=== PATIENT | male | born 1950 | race Caucasian/White ===

== ENCOUNTER 2019-01-13 12:59 | Emergency (ER) | payer OTHER ==
[~2019-01-13] VITALS: Ht 193 cm; Wt 97.5 kg
[~2019-01-13 12:59] MED LIST: ASPIR 8181 MG PO; TEGRETOL XR400 MG PO
== END 2019-01-13 17:00 | disposition home or self-care (01) ==
LOC: ED 12:59 → EDBD 13:01 → ED 13:01
DX: R56.9 Unspecified convulsions (principal); F17.200 Nicotine dependence, unspecified, uncomplicated; V89.2XXA Person injured in unspecified motor-vehicle accident, traffic, initial encounter
CPT/HCPCS: 80053; 80156; 85025; 99284

== ENCOUNTER 2020-10-23 11:09 | Emergency (ER) | payer OTHER ==
[~2020-10-23] VITALS: Ht 193 cm; Wt 97.5 kg
[2020-10-23] MEDS ORDERED: HYDROCODON-ACE1 EA10 PO (16:13)
[2020-10-23] MEDS ORDERED: LEVOFLOXACIN750 MG PO (16:13)
--- NOTE | 2020-10-24 14:07 | EKG ---
[facility] [address] [facility] [place], [place] [address] Signed Sinus rhythm with 1st degree AV block Septal infarct , age undetermined Abnormal ECG No previous ECGs available Confirmed by MADHURI ARRINGTON DO ([id number]) on 10/24/2020 2:06:55 PM Electronically Signed By: MADHURI ARRINGTON DO 10/24/20 1407 PATIENT NAME: KIMMIRA Electrocardiogram DATE OF : 46 PHYSICIAN: MADHURI ARRINGTON DO REPORT #: [id number] REPORT IS CONFIDENTIAL AND NOT TO BE RELEASED WITHOUT AUTHORIZATION
== END 2020-10-23 16:30 | disposition home or self-care (01) ==
LOC: ED 11:09
DX: J18.9 Pneumonia, unspecified organism (principal); Z20.822 Contact with and (suspected) exposure to COVID-19; I10 Essential (primary) hypertension; G40.909 Epilepsy, unspecified, not intractable, without status epilepticus; Z87.891 Personal history of nicotine dependence; Z79.899 Other long term (current) drug therapy; Z79.82 Long term (current) use of aspirin
CPT/HCPCS: 71045; 80053; 82553; 84484; 85025; 93005; 93010; 96365; 96367; 99284-25; C9803; J0456; J0696; J7060; U0003

== ENCOUNTER 2021-08-08 11:16 | Emergency (ER) | payer MEDICARE, OTHER ==
[~2021-08-08] VITALS: Ht 193 cm; Wt 90.7 kg
[~2021-08-08 11:16] MED LIST changes: +HYDROCODON-ACE1 EA10 PO; +LEVOFLOXACIN750 MG PO; +TEGRETOL XR200 MG PO
[2021-08-08] MEDS ORDERED: TEGRETOL XR200 MG PO (12:05)
== END 2021-08-08 12:20 | disposition home or self-care (01) ==
LOC: ED 11:16
DX: Z76.0 Encounter for issue of repeat prescription (principal); G40.909 Epilepsy, unspecified, not intractable, without status epilepticus; I10 Essential (primary) hypertension; Z87.891 Personal history of nicotine dependence; Z79.899 Other long term (current) drug therapy
CPT/HCPCS: 99281

== ENCOUNTER 2022-10-02 12:07 | Emergency (ER) | payer OTHER, MEDICARE ==
[~2022-10-02] VITALS: Ht 193 cm; Wt 83.9 kg
--- OUTSIDE RECORDS SUMMARY | 2022-10-02 12:10 | XMS ---
PreManage Notification: MIRA KIM Security Training Developer Events No recent Security Events currently on file [facility] There are no care providers on record at this time. Ml has no Care Guidelines for this patient. Virgie VISIT COUNT (12 MO.) 1 [facility] TOTAL 1 NOTE: Visits indicate total known visits. ED/UCC VISIT TRACKING (12 MO.) 10/02/2022 12:07 [facility] [place] TYPE: Emergency COMPLAINT: - MEDICATION REQUEST INPATIENT VISIT TRACKING (12 MO.) No inpatient visits to display in this time frame [email or web address]
[2022-10-02] MEDS ORDERED: CLOBAZAM10 MG PO (15:43)
[2022-10-02 15:51] VITALS: BP 138/77
== END 2022-10-02 15:53 | disposition home or self-care (01) ==
LOC: ED 12:07
DX: Z76.0 Encounter for issue of repeat prescription (principal); I10 Essential (primary) hypertension; Z87.891 Personal history of nicotine dependence; Z79.899 Other long term (current) drug therapy
CPT/HCPCS: 99281

== ENCOUNTER 2023-07-20 12:05 | Emergency (ER) | payer OTHER ==
[~2023-07-20] VITALS: Ht 193 cm; Wt 77.0 kg
[~2023-07-20 12:05] MED LIST changes: +CLOBAZAM10 MG PO
--- OUTSIDE RECORDS SUMMARY | 2023-07-20 12:11 | XMS ---
PreManage Notification: MIRA KIM Security Operations Supervisor 2Nd Shift Events No recent Security Events currently on file CRITERIA MET - [facility] CARE PROVIDERS [facility] Internal Medicine Current PHONE: [phone] Ml has no Care Guidelines for this patient. EDiomedes VISIT COUNT (12 MO.) 2 [facility] TOTAL 2 NOTE: Visits indicate total known visits. ED/UCC VISIT TRACKING (12 MO.) 07/20/2023 12:08 [facility] TYPE: Emergency COMPLAINT: - FEET SWOLLEN 10/02/2022 12:07 [facility] TYPE: Emergency COMPLAINT: - MEDICATION REQUEST DIAGNOSES: - Encounter for issue of repeat prescription - Essential (primary) hypertension - Other snf (current) drug therapy - Personal history of nicotine dependence INPATIENT VISIT TRACKING (12 MO.) 06/07/2023 05:37 [facility] TYPE: Neuro Surgery DIAGNOSES: 01967. Localization-related (focal) (partial) idiopathic epilepsy and epileptic syndromes with seizures of localized onset, intractable, without status epilepticus 56836. Localization-related (focal) (partial) symptomatic epilepsy and epileptic syndromes with complex partial seizures, intractable, without status epilepticus 51620. Localization-related (focal) (partial) symptomatic epilepsy and epileptic syndromes with complex partial seizures, intractable, without status epilepticus [email or web address]
[2023-07-20] MEDS ORDERED: ATIVAN1 MG PO (12:30)
[2023-07-20] MEDS ORDERED: COZAAR50 MG PO (12:31)
[2023-07-20] MEDS ORDERED: TOPAMAX50 MG PO (12:31)
[2023-07-20] MEDS ORDERED: FLOMAX0.4 MG PO (12:32)
[2023-07-20 13:00] LABS: BASOPHILS 0.7 % (0-2); EOSINOPHILS 2.7 % (0-6); HEMATOCRIT 33.6 % (35.0-50.0); HEMOGLOBIN 11.4 g/dL (12.0-18.0); LYMPHOCYTES 23.1 % (24-44); MCH 32.3 (27-36); MCHC 33.9 g/dl (30-36); MCV 95.2 fl (81-99); MONOCYTES 8.8 % (0-12); NEUTROPHILS 64.7 % (39-80); PLATELET COUNT 296 K/uL (140-440); RBC 3.53 M/ul (4.3-5.7); RDW 14.1 (10.5-15.0)
[2023-07-20 13:22] LABS: ALBUMIN 2.9 g/dL (3.4-5.0); ALBUMIN/GLOBULIN RATIO 0.81 (1.1-2.4); ANION GAP 8.7 (7-21); BILIRUBIN, TOTAL 0.2 ng/dL (0.2-1.0); BUN/CREATININE RATIO 16.85 (6.0-28.6); CALCIUM 8.2 mg/dL (8.5-10.1); CREATININE, SERUM 0.89 mg/dL (0.70-1.30); POTASSIUM 3.7 mmol/L (3.5-5.1); PROTEIN, TOTAL 6.5 g/dL (6.4-8.2)
[2023-07-20 13:55] LABS: BILIRUBIN, URINE NEGATIVE (negative); BLOOD/HGB, URINE NEGATIVE (Negative); KETONE, URINE NEGATIVE (Negative); LEUK ESTERASE, URINE NEGATIVE (negative); NITRITE, URINE NEGATIVE (negative)
[2023-07-20] MEDS ORDERED: FUTURO RESTORI1 EACH MISC (14:13)
[2023-07-20 14:18] LABS: AMPHETAMINES, URINE NEGATIVE (NEGATIVE); BARBITURATES, URINE NEGATIVE (NEGATIVE); BENZODIAZEPINE, URINE POSITIVE (NEGATIVE); BUPRENORPHINE, URINE NEGATIVE (NEGATIVE); CANNABINOID, URINE POSITIVE (NEGATIVE); COCAINE, URINE NEGATIVE (NEGATIVE); ECSTASY, URINE NEGATIVE (NEGATIVE); FENTANYL, URINE NEGATIVE (NEGATIVE); METHADONE, URINE NEGATIVE (NEGATIVE); OPIATES, URINE NEGATIVE (NEGATIVE); OXYCODONE, URINE NEGATIVE (NEGATIVE); PHENCYCLIDINE, URINE NEGATIVE (NEGATIVE)
[2023-07-20 14:40] VITALS: BP 123/79
--- NOTE | 2023-07-21 15:02 | EKG ---
[facility] [address] [facility] [place], [place] [address] Signed Sinus bradycardia with 1st degree AV block Septal infarct (cited on or before 23-OCT-2020) Abnormal ECG When compared with ECG of 23-OCT-2020 11:30, No significant change was found Confirmed by MARYLIN RYAN MD ([id number]) on 07/21/2023 3:02:11 PM Electronically Signed By: MARYLIN RYAN 07/21/23 1502 PATIENT NAME: MIRA KIM Electrocardiogram DATE OF : 46 PHYSICIAN: MARYLIN RYAN REPORT #: [id number] REPORT IS CONFIDENTIAL AND NOT TO BE RELEASED WITHOUT AUTHORIZATION
== END 2023-07-20 14:40 | disposition home or self-care (01) ==
LOC: ED 12:05
PROVIDERS: Internal Medicine
DX: I87.2 Venous insufficiency (chronic) (peripheral) (principal); I10 Essential (primary) hypertension; G40.909 Epilepsy, unspecified, not intractable, without status epilepticus; Z87.891 Personal history of nicotine dependence; Z79.899 Other long term (current) drug therapy
CPT/HCPCS: 36415; 71045; 80053; 80307; 81003; 83880; 85025; 93005; 93010; 93970; 99285-25

== ENCOUNTER 2023-08-24 12:27 | Emergency (ER) | payer OTHER ==
[~2023-08-24] VITALS: Ht 193 cm; Wt 80.4 kg
[~2023-08-24 12:27] MED LIST changes: +ATIVAN1 MG PO; +COZAAR50 MG PO; +FLOMAX0.4 MG PO; +FUTURO RESTORI1 EACH MISC; +TOPAMAX50 MG PO
--- OUTSIDE RECORDS SUMMARY | 2023-08-24 12:30 | XMS ---
PreManage Notification: MIRA KIM Security Manager Learning Events No recent Security Events currently on file CRITERIA MET - [facility] CARE PROVIDERS [facility] WOOD Internal Medicine Current PHONE: [phone] Ml has no Care Guidelines for this patient. EDiomedes VISIT COUNT (12 MO.) 3 [facility] TOTAL 3 NOTE: Visits indicate total known visits. ED/UCC VISIT TRACKING (12 MO.) 08/24/2023 12:28 [facility] [place] TYPE: Emergency COMPLAINT: - SEIZURE 07/20/2023 12:08 [facility] [place] TYPE: Emergency COMPLAINT: - FEET SWOLLEN DIAGNOSES: - Epilepsy, unspecified, not intractable, without status epilepticus - Essential (primary) hypertension - Localized edema - Other termite exterminator (current) drug therapy - Personal history of nicotine dependence - Venous insufficiency (chronic) (peripheral) 10/02/2022 12:07 [facility] [place] TYPE: Emergency COMPLAINT: - MEDICATION REQUEST DIAGNOSES: - Encounter for issue of repeat prescription - Essential (primary) hypertension - Other senior living (current) drug therapy - Personal history of nicotine dependence INPATIENT VISIT TRACKING (12 MO.) 06/07/2023 05:37 [facility] TYPE: Neuro Surgery DIAGNOSES: 53362. Localization-related (focal) (partial) idiopathic epilepsy and epileptic syndromes with seizures of localized onset, intractable, without status epilepticus 87234. Localization-related (focal) (partial) symptomatic epilepsy and epileptic syndromes with complex partial seizures, intractable, without status epilepticus 57500. Localization-related (focal) (partial) symptomatic epilepsy and epileptic syndromes with complex partial seizures, intractable, without status epilepticus [email or web address]
[2023-08-24 12:53] LABS: BASOPHILS 1.1 % (0-2); EOSINOPHILS 3.6 % (0-6); HEMATOCRIT 39.6 % (35.0-50.0); HEMOGLOBIN 13.1 g/dL (12.0-18.0); LYMPHOCYTES 28.2 % (24-44); MCH 31.6 (27-36); MCV 95.7 fl (81-99); MONOCYTES 7.5 % (0-12); NEUTROPHILS 59.6 % (39-80); PLATELET COUNT 318 K/uL (140-440); RBC 4.14 M/ul (4.3-5.7); RDW 13.8 (10.5-15.0)
[2023-08-24 13:14] LABS: ALBUMIN 3.3 g/dL (3.4-5.0); ALBUMIN/GLOBULIN RATIO 0.89 (1.1-2.4); ALCOHOL, MEDICAL <3 ng/dL (<3); ALKALINE PHOSPHATASE 109 U/L (46-116); ALT (SGPT) 29 U/L (14-59); ANION GAP 11.7 (7-21); AST (SGOT) 17 U/L (15-37); BILIRUBIN, TOTAL 0.4 ng/dL (0.2-1.0); BUN/CREATININE RATIO 13.04 (6.0-28.6); CALCIUM 8.5 mg/dL (8.5-10.1); CARBON DIOXIDE 29 mmol/L (21-32); CHLORIDE 106 mmol/L (98-107); CREATININE, SERUM 0.92 mg/dL (0.70-1.30); GLOMERULAR FILTRATION RATE,EST 87 mL/min (>60); POTASSIUM 3.7 mmol/L (3.5-5.1); UREA NITROGEN 12 mg/dL (7-18)
[2023-08-24 15:29] LABS: BILIRUBIN, URINE NEGATIVE (negative); BLOOD/HGB, URINE NEGATIVE (Negative); KETONE, URINE NEGATIVE (Negative); LEUK ESTERASE, URINE NEGATIVE (negative); NITRITE, URINE NEGATIVE (negative); PH, URINE 7.5 (5-7)
[2023-08-24] MEDS ORDERED: carBAMazepine 200 MG TAB PO ONE (15:45)
[2023-08-24 15:46] LABS: AMPHETAMINES, URINE NEGATIVE (NEGATIVE); BARBITURATES, URINE NEGATIVE (NEGATIVE); BENZODIAZEPINE, URINE POSITIVE (NEGATIVE); BUPRENORPHINE, URINE NEGATIVE (NEGATIVE); CANNABINOID, URINE POSITIVE (NEGATIVE); COCAINE, URINE NEGATIVE (NEGATIVE); ECSTASY, URINE NEGATIVE (NEGATIVE); FENTANYL, URINE NEGATIVE (NEGATIVE); METHADONE, URINE NEGATIVE (NEGATIVE); OPIATES, URINE NEGATIVE (NEGATIVE); OXYCODONE, URINE NEGATIVE (NEGATIVE); PHENCYCLIDINE, URINE NEGATIVE (NEGATIVE)
[2023-08-24 15:50] VITALS: BP 154/82
--- NOTE | 2023-08-24 17:22 | EKG ---
[facility] [address] [facility] [place] [address] Signed Sinus rhythm with 1st degree AV block Septal infarct (cited on or before 23-OCT-2020) Abnormal ECG When compared with ECG of 20-JUL-2023 12:31, No significant change was found Confirmed by Magui Lucas ([id number]) on 08/24/2023 5:21:51 PM Electronically Signed By: MAGUI LUCAS MD 08/24/23 1722 PATIENT NAME: MIRA KIM Electrocardiogram DATE OF : 46 PHYSICIAN: MAGUI LUCAS MD REPORT #: [id number] REPORT IS CONFIDENTIAL AND NOT TO BE RELEASED WITHOUT AUTHORIZATION
== END 2023-08-24 15:57 | disposition home or self-care (01) ==
LOC: ED 12:27
PROVIDERS: Emergency Medicine
DX: R53.1 Weakness (principal); I10 Essential (primary) hypertension; G40.909 Epilepsy, unspecified, not intractable, without status epilepticus; Z87.891 Personal history of nicotine dependence; Z79.899 Other long term (current) drug therapy
CPT/HCPCS: 36415; 70450; 80053; 80307; 81003; 84484; 85025; 93005; 93010; 99284-25; G0480

== ENCOUNTER 2023-08-26 11:29 | Inpatient (IN) | payer OTHER ==
[2023-08-26] VITALS (7 sets, daily range): BP systolic 147–207; BP diastolic 85–123
[~2023-08-26] VITALS: Ht 193 cm; Wt 77.5 kg
[2023-08-26 11:52] LABS: EOSINOPHILS 3.9 % (0-6); HEMATOCRIT 41.7 % (35.0-50.0); HEMOGLOBIN 13.8 g/dL (12.0-18.0); LYMPHOCYTES 32.3 % (24-44); MCH 31.4 (27-36); MCV 95.2 fl (81-99); MONOCYTES 4.6 % (0-12); NEUTROPHILS 58.2 % (39-80); PLATELET COUNT 314 K/uL (140-440); RBC 4.38 M/ul (4.3-5.7); RDW 13.7 (10.5-15.0)
[2023-08-26 12:13] LABS: ALBUMIN 3.5 g/dL (3.4-5.0); ALBUMIN/GLOBULIN RATIO 0.95 (1.1-2.4); ANION GAP 10.7 (7-21); BILIRUBIN, TOTAL 0.5 ng/dL (0.2-1.0); BUN/CREATININE RATIO 10.1 (6.0-28.6); CALCIUM 8.6 mg/dL (8.5-10.1); CREATININE, SERUM 0.99 mg/dL (0.70-1.30); MAGNESIUM 2.1 mg/dL (1.8-2.4); POTASSIUM 3.7 mmol/L (3.5-5.1); PROTEIN, TOTAL 7.2 g/dL (6.4-8.2)
[2023-08-26 12:15] LABS: CARBAMAZEPINE (TEGRETOL) 10.9 ug/mL (4.0-12.0)
[2023-08-26 12:23] LABS: BILIRUBIN, URINE NEGATIVE (negative); BLOOD/HGB, URINE NEGATIVE (Negative); KETONE, URINE NEGATIVE (Negative); LEUK ESTERASE, URINE NEGATIVE (negative); NITRITE, URINE NEGATIVE (negative)
--- OUTSIDE RECORDS SUMMARY | 2023-08-26 12:25 | XMS ---
PreManage Notification: MIRA KIM Security Coverer Events No recent Security Events currently on file CRITERIA MET - [facility] - 2 Visits in 30 Days CARE PROVIDERS SHIRLEY WOOD Internal Medicine Current PHONE: [phone] Ml has no Care Guidelines for this patient. EDiomedes VISIT COUNT (12 MO.) 4 [facility] TOTAL 4 NOTE: Visits indicate total known visits. ED/UCC VISIT TRACKING (12 MO.) 08/26/2023 11:29 [facility] [place] TYPE: Emergency COMPLAINT: - STROKE SYMPTOMS 08/24/2023 12:28 [facility] TYPE: Emergency COMPLAINT: - SEIZURE DIAGNOSES: - Epilepsy, unspecified, not intractable, without status epilepticus - Essential (primary) hypertension - Other continuous churn buttermaker (current) drug therapy - Personal history of nicotine dependence - Weakness 07/20/2023 12:08 [facility] [place] TYPE: Emergency COMPLAINT: - FEET SWOLLEN DIAGNOSES: - Epilepsy, unspecified, not intractable, without status epilepticus - Essential (primary) hypertension - Localized edema - Other long-term (current) drug therapy - Personal history of nicotine dependence - Venous insufficiency (chronic) (peripheral) 10/02/2022 12:07 [facility] TYPE: Emergency COMPLAINT: - MEDICATION REQUEST DIAGNOSES: - Encounter for issue of repeat prescription - Essential (primary) hypertension - Other long-term (current) drug therapy - Personal history of nicotine dependence INPATIENT VISIT TRACKING (12 MO.) 06/07/2023 05:37 [facility] TYPE: Neuro Surgery DIAGNOSES: 01104. Localization-related (focal) (partial) idiopathic epilepsy and epileptic syndromes with seizures of localized onset, intractable, without status epilepticus 13904. Localization-related (focal) (partial) symptomatic epilepsy and epileptic syndromes with complex partial seizures, intractable, without status epilepticus 63616. Localization-related (focal) (partial) symptomatic epilepsy and epileptic syndromes with complex partial seizures, intractable, without status epilepticus [email or web address]
[2023-08-26 12:28] LABS: EPITHELIAL CELLS, URINE SQUAMOUS 1+ /lpf (0-1+); RED BLOOD CELLS, URINE 0-1 /hpf (0-5); WHITE BLOOD CELLS, URINE 0-1 /HPF (0-5)
[2023-08-26 12:29] LABS: BACTERIA, URINE NONE SEEN /hpf (negative); CASTS, URINE NONE SEEN \\lpf; COLLECTION TYPE, URINE CLEAN CATCH; CRYSTALS, URINE NONE SEEN (0-1+); REFLEX CULTURE, URINE No (No)
[2023-08-26] MEDS ORDERED: ACETAMINOPHEN 325 MG TAB PO PRN (13:45)
[2023-08-26] MEDS ORDERED: PROCHLORPERAZINE EDISYLATE 10 MG/2 ML VIAL IV PRN (13:45)
[2023-08-26] MEDS ORDERED: ondansetron HCL 4 MG/2 ML VIAL IV PRN (13:45)
--- NOTE | 2023-08-26 14:55 | NUR ---
PT ARRIVES TO ROOM ON STRETCHER ACCOMPANIED BY KASIA GONZALES. PT ABLE TO SCOOT SELF FROM STRETCHER TO BED. REPORT RECEIVED FROM KASIA GONZALES. 2 RN SKIN ASSESSMENT COMPLETE WITH KASIA GONZALES. RENESS NOTED TO PTs RIGHT POSTERIOR SHOULDER. PT REPORTING TOILETING NEEDS. SBA WITH FWW FROM BED TO RESTROOM. PT NOTED TO HAVE UNSTEADY GAIT. SBA FROM RESTROOM BACK TO BED. VOID NOTED. PT PLACED IN HOSPITAL GOWN. PTs CLOTHES PLACED IN GREEN PT BELONGING BAG. 1549 ASSESSMENT COMPLETE. PT DENIES PAIN AT THIS TIME. LUNG SOUNDS CLEAR. BOWEL TONES ACTIVE. PT DENIES ABD TENDERNESS WITH PALPATION. PT REPORTS CHRONIC NUMBNESS IN BILATERAL FEET. WEAKNESS NOTED IN PTs BLE. PT STATES "I HAVE TROUBLE WITH MY BALANCE." PT USES FWW AT BASELINE. HEART TONES IRREGULAR. PT A&O TO ALL WITH EXPECTION TO TIME. PT REPORTS HAVING UPPER AND LOWER DENTURES AT HOME, NOT WITH PT AT THIS TIME. NIH SCORE OF 2 NOTED. PT REPORTING "VISION IS SLOW TO GET THERE, THE TELEPHONE IS WIGGLING." SCDs PLACED. BEDSIDE SWALLOW BY THIS RN COMPLETE, SEE LESLIE SWALLOW. PT BED ALARM PLACED. CALL LIGHT IN REACH. SEIZURE PADS IN PLACE. PT EDUCATED PRIMARY CARE PROVIDER LIGHT USE. PT DENIES ANY OTHER NEEDS AT THIS TIME.
[2023-08-26] MEDS ORDERED: TEGRETOL200 MG PO ×2 (17:11→17:12)
[2023-08-26] MEDS ORDERED: CLOBAZAM10 MG PO (17:14)
[2023-08-26] MEDS ORDERED: SENNA-PLUS TAB1 EACH PO (17:15)
[2023-08-26] MEDS ORDERED: FISH OIL 1,0001 EACH PO (17:16)
[2023-08-26] MEDS ORDERED: VITAMIN D325 MCG PO (17:16)
--- NOTE | 2023-08-26 17:18 | NUR ---
medications reconciled with . Patient will be taking his own clobazam 20mg dose (two 10mg tablets) BID. Someone will bring them in
[2023-08-26] MEDS ORDERED: TAMSULOSIN HCL 0.4 MG CAP PO SCH (17:30)
[2023-08-26] MEDS ORDERED: LORazepam 1 MG TAB PO PRN (17:30)
--- NOTE | 2023-08-26 18:03 | NUR ---
IN WITH SHARMILA MACHADO., RN AND ANILA NEGRON. PT REPORTING "FEELING LIKE NECK IS TIGHT." PT APPEARS TENSE IN NECK. B/P NOTED TO BE 207/123 WITH HR AT 79. PER DR. WOO "GIVE 2000 DOSE OF TEGRETOL NOW AND ALSO PTs OWN MED CLOBAZAM NOW." MEDICATIONS ADMINISTERED, SEE JUN. PT TAKES PO MEDICATIONS ONE AT A TIME WITH WATER WITH NO ISSUES. ONE TIME ORDER OF LABETALOL ORDERED. 1832 PTs VITALS TAKEN AND BP NOTED TO BE 189/106. DR. WOO NOTIFIED. PER DR. WOO "HOLD THE LABETALOL." PT ALSO REPORTING "FEELING A LITTLE BETTER NOW." PT NOTED TO APPEAR MORE COMFORTABLE AND LESS TENSE. PT REPORTING TOILETING NEEDS. PT HANDED URINAL AND ENCOURAGED TO USE URINAL AT THIS TIME. PT AGREEABLE. VOID NOTED. PT SITTING UP IN BED. SEIZURE PADS IN PLACE. BED ALARM ON. CALL LIGHT IN REACH. SCDs IN PLACE. PT DENIES ANY OTHER NEEDS.
--- NOTE | 2023-08-26 18:06 | NUR ---
PT CALLED HE STATE HE WAS HAVING "ANOTHER ATTACK", NECK WAS RIGID AND TIGHT HE STATES, C/O TIGHTNESS IN JAW. BP ELEVATED 181/111, DENIED CHEST PAIN/SOB. C/O VISION CHANGES-DOUBLE VISION. FEELS LIKE HANDS ARE STIFF/LIMP AND THEN BACK TO NORMAL. APPEARS TO BE HAVING DIFFICULTY FINDING WORDS AT TIMES, BUT IMPROVING OVER CONVERSATION. MD WAS NOTIFIED, ARRIVED AT BEDSIDE, SCHEDULED 2000 MEDS GIVEN EARLY PER MD. PT STATES HE SEEMS LIKE FEELING BETTER JUST ABOUT 3-5 MINUTES AFTER MEDS GIVEN. REPEAT BP 207/123, HR 79, O2 100 ON RA. PT CMS INTACT, ABLE TO MOVE ALL EXTREMITIES WITHOUT ANY DEFICITS. MD PRESENT AT BEDSIDE DURING ASSESSMENT, WILL REIVEW ORDERS AND INPUT NEW ORDERS ACCORDINGLY.
[2023-08-26] MEDS ORDERED: LABETALOL HCL 100 MG/20 ML MDV IV ONE (18:30)
--- NOTE | 2023-08-26 18:39 | NUR ---
PER MD, INPUT ORDER FOR X1 DOSE LABETOLOL, PT REPEAT BP 189/106, WOULD LIKE RECHECK BP JUST PRIOR TO CHANGE OF SHIFT AGAIN, WILL HOLD THE LABETOLOL AT THIS TIME PER MD SINCE WE DID JUST GIVE THE X2 MEDS EARLY THIS EVENING. CALL LIGHT WITHIN REACH AT THIS TIME, SEIZURE PADS ON BED. ALL PT CARE NEEDS MET, WILL CONTINUE TO MONITOR
--- NOTE | 2023-08-26 19:05 | NUR ---
shift report received from dayshift vera roberson at bedside, pt awake and talking with staff. no distress noted, bed alarm on for safety and call light in reach. tele#[address], nsr-hr wnl. pt denies needs or concerns.
[2023-08-26] MEDS ORDERED: carBAMazepine 200 MG TAB PO SCH (20:00)
[2023-08-26] MEDS ORDERED: SENNOSIDES/DOCUSATE 1 EA TAB PO SCH (20:00)
[2023-08-26] MEDS ORDERED: TOPIRAMATE 25 MG TAB PO SCH (20:00)
[2023-08-26] MEDS ORDERED: cloBAZam 10 MG TABLET PO SCH (20:00)
--- NOTE | 2023-08-26 20:17 | NUR ---
PT A/O, WATCHING TV. VS, I/O COMPLETED AT THIS TIME.
--- NOTE | 2023-08-26 20:28 | NUR ---
ASSESSMENT COMPLETE, SCHEDULED MEDS GIVEN-SEE EMAR. VSS, pt REMAINS ON RA. RR EVEN AND UNLABORED. SCD'S IN PLACE. EQUAL STRENGTH NOTED TO BUE AND BLE. CMS INTACT EQUALLY, pt DENIES NUMBNESS AND TINGLING. DENIES PAIN AND NAUSEA. A/O TO SELF, KNEW HE WAS IN HOSPITAL BUT DIDN'T KNOW THE NAME. GUESSED IT WAS AUGUST, BUT REORIENTED IT IS LATE JULY. pt PLEASANT AND COMPLAINT WITH CARES. BED ALARM ON FOR SAFETY AND CALL LIGHT IN REACH. PUPILS ROUND, EQUAL, AND REACTIVE TO LIGHT. TELE #[address], NSR PER MONITOR. pt REPORTS HAVING "BRAIN FOG" SINCE HIS BRAIN SURGERY IN JUN OF THIS YEAR. IV SITE WNL, FLUSHES EASILY. pt DENIES ADDITIONAL NEEDS, WILL MONITOR FOR CAHNGES.
--- NOTE | 2023-08-26 22:30 | NUR ---
ROUNDED ON pt, pt RESTING IN BED WITH EYES CLOSED. ON RA, RR EVEN AND UNLABORED, NO DISTRESS NOTED. BED ALARM ON AND CALL LIGHT IN REACH.
--- NOTE | 2023-08-26 23:47 | NUR ---
CALL LIGHT ANSWERED, pt WANTING HELP WITH REPOSITONING SEIZURE PADS ONE OF THEM WAS LOOSE. NO ADDITIONAL NEEDS, pt STATES, "I FEEL PRETTY GOOD, LIKE I NORMALLY DO". NO CHANGE TO NEURO ASSESSMENT. CALL LIGHT IN REACH, BED ALARM ON.
[2023-08-27] VITALS (7 sets, daily range): BP systolic 125–187; BP diastolic 70–131
--- NOTE | 2023-08-27 02:04 | NUR ---
PATIENT RESTING IN BED WITH EYES CLOSED. I WOKE PATIENT UP TO GET VITAL SIGNS. PATIENT NEEDED TO USE THE BATHROOM. PATIENT PROVIDED WITH URINAL. PATIENT VOIDED. PATIENT STATES NO FURTHER NEEDS AT THIS TIME. CALL LIGHT IN REACH.
--- NOTE | 2023-08-27 02:07 | NUR ---
rounded on pt, laborer livestock recently in room for vs. vss, tele#[address], call light in reach. bed alarm on for safety.
--- NOTE | 2023-08-27 05:07 | NUR ---
ROUNDED ON pt, pt RESTING QUIETLY IN BED LAYING ON LEFT SIDE. ON RA, RR EVEN AND UNLABORED WITH NO DISTRESS NOTED. CALL LIGHT IN REACH. BED ALARM REMAINS ON FOR SAFETY.
[2023-08-27 06:20] LABS: BASOPHILS 1.2 % (0-2); EOSINOPHILS 4.1 % (0-6); HEMATOCRIT 39.2 % (35.0-50.0); HEMOGLOBIN 13.2 g/dL (12.0-18.0); LYMPHOCYTES 29.2 % (24-44); MCHC 33.6 g/dl (30-36); MCV 95.1 fl (81-99); NEUTROPHILS 57.5 % (39-80); PLATELET COUNT 284 K/uL (140-440); RBC 4.13 M/ul (4.3-5.7); RDW 13.7 (10.5-15.0)
--- NOTE | 2023-08-27 06:38 | NUR ---
PATIENT STATED HE NEEDS TO USE THE BATHROOM. PATIENT USES URINAL. PATIENT VOIDED. PATIENT HAS NO FURTHER NEEDS AT THIS TIME. CALL LIGHT IN REACH.
[2023-08-27 06:40] LABS: ALBUMIN 3.2 g/dL (3.4-5.0); ALBUMIN/GLOBULIN RATIO 0.94 (1.1-2.4); ANION GAP 8.8 (7-21); BILIRUBIN, TOTAL 0.5 ng/dL (0.2-1.0); BUN/CREATININE RATIO 10.84 (6.0-28.6); CALCIUM 8.3 mg/dL (8.5-10.1); CREATININE, SERUM 0.83 mg/dL (0.70-1.30); MAGNESIUM 1.9 mg/dL (1.8-2.4); PHOSPHORUS, INORGANIC 3.3 mg/dL (2.5-4.9); POTASSIUM 3.8 mmol/L (3.5-5.1); PROTEIN, TOTAL 6.6 g/dL (6.4-8.2)
[2023-08-27 07:11] LABS: CHOLESTEROL/HDL RATIO 2.9
--- NOTE | 2023-08-27 07:53 | NUR ---
PT RESTING IN BED WATCHING TV AT TIME OF SHIFT REPORT. HE REQUEST MORNING MEDS RADHA. CONCERNED HE GETS THEM TO PREVENT "PROBLEMS" MEDS ADMINISTERED. FRESH H20 TO BEDSIDE DENIES OTHER NEEDS. PT STATES HE HOPES TO GO HOME TODAY. DENIES ANY SYMPTOMS OR CHANGE IN CONDITION SINCE ADMISSION. SEIZURE PADS IN PLACE CALL LIGHT IN REACH.
[2023-08-27] MEDS ORDERED: carBAMazepine 200 MG TAB PO SCH (08:00)
--- NOTE | 2023-08-27 09:17 | NUR ---
PT TOLERATES BREAKFAST THEN RETURNS TO RESTING EYES CLOSED. CALL LIGHT IN REACH BED ALARM IS SET
--- NOTE | 2023-08-27 09:27 | NUR ---
PATCHER ENTERED PT ROOM AND PT WAS DONE EATING BREAKFAST. PATCHER RECORDED INTAKE ON PT BOARD IN ROOM. PT STATES NO COMPLAINTS OTHER THAN THAT HE DID NOT GET VERY MUCH SLEEP LAST NIGHT. PATCHER TOLD PT THAT WE WOULD FIND A TIME THAT HE WOULD BE ABLE TO TAKE A NAP. PT STATES NO FURTHER COMPLAINTS AT THIS TIME. CALL LIGHT IS Viroblock REACH
--- NOTE | 2023-08-27 10:07 | NUR ---
PT UP WORKING WITH P/T
--- NOTE | 2023-08-27 11:32 | NUR ---
PT HAS BEEN UP IN THE CHAIR SINCE WORKING WITH P/T EARLIER. DENIES DISCOMFORTS OR NEEDS OF. REMINDED TO USE CALL LIGHT FOR ANY ASSISTANCE
[2023-08-27] MEDS ORDERED: PHARMACY RENAL DOSE ADJUSTMENT 1 DOSE MISC PO SCH (12:00)
--- NOTE | 2023-08-27 13:52 | NUR ---
PT CONTINUES UP IN THE CHAIR DR WOO IN TO SEE HIM. PT STATES HE IS STAYING UNTIL TOMORROW FOR FURTHER TESTING DENIES QUESTIONS OR CONCERNS
--- NOTE | 2023-08-27 14:15 | NUR ---
NEURO CHECKS REMAIN UNREMARKABLE. PT DENIES ANY CHANGES SINCE ADMISSION. REPORTS HE FORGOT TO TELL THE DOCTOR HE NORMALLY WEARS GLASSES. ANTICIPATES MRI TOMORROW
--- NOTE | 2023-08-27 19:15 | NUR ---
REPORT RECEIVED FROM KASIA WILDER. pt UP IN CHAIR. CALL LIGHT PROVIDED. pt DEMONSTRATES CALL LIGHT USE. NO REQUESTS AT THIS TIME.
--- NOTE | 2023-08-27 19:34 | NUR ---
PATIENT CALLED TO USE THE RESTROOM, PATIENT IS NOW IN BED AND RESTING. PATIENT HAS CALL LIGHT.
--- NOTE | 2023-08-27 20:04 | NUR ---
PATIENT CALLED TO USE RESTROOM, PATIENT IS NOW SITTING UP IN BED. PATIENT CALLED TO SEE IF HE COULD GET MEDICINE EARLY. I TOLD PATIENT HIS NURSE WOULD BE RIGHT IN. PATIENT HAS CALL LIGHT AND PHONE
--- NOTE | 2023-08-27 20:22 | NUR ---
pt ANXIOUS. RESTING IN BED, SITTING FORWARD, ROCKING BODY BACK AND FORTH. CALLS AND ON PHONE WITH pt. PRN ANXIETY MEDICATION ADMINISTERED. SCHEDULED MEDICATIONS ADMINISTERED. VS COMPLETE. ASSESSMENT COMPLETE. NEURO CHECK COMPLETE. BLURRINESS NOTED IN RIGHT EYE, pt STATES CHRONIC ISSUE SINCE JUNE. ORIENTED TO ALL EXCEPT EXACT DATE. THERAPEUTIC COMMUNICATION PROVIDED. PERSONAL SUPPLIES IN REACH.
--- NOTE | 2023-08-27 21:13 | NUR ---
pt CALLING OUT, SBA WITH FWW TO RESTROOM FOR VOID AND BACK TO BED. pt RESTING IN BED, MRI FORM COMPLETE. ON PHONE ASSISTING WITH QUESTIONNAIRE. BP REASSESSED. PHONE CALL TO MD, NOTIFIED OF ANXIETY AND HTN. MD TO RESTART HOME BP TOMORROW, ONE TIME BP MEDICATION TO BE ADMINISTERED NOW. MD TO PLACE ORDERS.
[2023-08-27] MEDS ORDERED: LOSARTAN POTASSIUM 50 MG TAB PO SCH (21:15)
[2023-08-27] MEDS ORDERED: LABETALOL HCL 100 MG/20 ML MDV IV ONE (21:15)
--- NOTE | 2023-08-27 22:36 | NUR ---
CHECKED ON pt. RESTING IN BED WITH HEAD COVERED WITH BLANKET. BREATHING UNLABORED. HR 81 ON TELE 1. BED ALARM ON.
--- NOTE | 2023-08-28 00:20 | NUR ---
BED ALARM SOUNDING. SBA WITH FWW TO RESTROOM FOR VOID. pt ANXIOUS, STATES "I MIGHT HAVE A SEIZURE OR SOMETHING, I DON'T KNOW". pt WITH SOME CONFUSION, REORIENTED TO PLACE, PLAN OF CARE. PRN MEDICATION ADMINISTERED. pt BACK IN BED, ALERT AND ORIENTED, STATES "THAT WAS A WEIRD FEELING. I HAVE BEEN SLEEPING GOOD". VS COMPLETE. NEURO CHECK COMPLETE. CALL LIGHT IN REACH. BED ALARM ON.
[2023-08-28 00:24] VITALS: BP 151/100
--- NOTE | 2023-08-28 03:00 | NUR ---
IN ROOM TO FIX HEART MONITOR. pt SLEEPING, AWAKENS TO VOICE. LEAD REPLACED. BED ALARM ON. CALL LIGHT IN REACH.
--- NOTE | 2023-08-28 05:05 | NUR ---
pt RESTING IN BED ON RIGHT SIDE. EYES CLOSED. HR 67. NO DISTRESS NOTED. BED ALARM ON.
[2023-08-28 06:04] VITALS: BP 113/61
[2023-08-28 06:28] VITALS: BP 113/61
--- NOTE | 2023-08-28 06:58 | NUR ---
CHECKED ON pt. RESTING IN BED WITH EYES CLOSED. BREATHING UNLABORED. NO DISTRESS NOTED. BED ALARM ON.
--- NOTE | 2023-08-28 07:20 | NUR ---
PT RESTING EYES CLOSED AT TIME OF SHIFT REPORT, LEFT UNDISTURBED. CALL LIGHT WATER AND NEEDED ITEMS AT BEDSIDE
--- NOTE | 2023-08-28 07:58 | NUR ---
PATIENT WAS SLEEPING WHEN DOING THIS HOURLY ROUND. BOARD HAS BEEN UPDATED AND CALL LIGHT HAS BEEN PLACED WITHIN PATIENT REACH.
--- NOTE | 2023-08-28 08:30 | NUR ---
PT UP TO THE TOILET SBA THEN TO RECLINER FOR MORING MEAL. REVIEWED PLAN FOR MRI THIS SHIFT AND POSSIBLY DC. PT AGREES HE IS READY. NO NEURO CHANGE SINCE ADMISSION, PT AGREES HE FEELS WELL AND AT BASELINE.
--- NOTE | 2023-08-28 08:53 | NUR ---
PT NOTIFIED MRI IS SCHEDULED FOR 1300 TODAY. HE IS UP IN THE CHAIR TALKING ON THE PHONE WATCHING TV NEEDED ITEMS IN REACH. PT AGREES TO USE CALL LIGHT FOR UP TO THE TOILET
[2023-08-28 09:27] VITALS: BP 146/85
--- NOTE | 2023-08-28 10:05 | NUR ---
PT DOWN TO MRI VIA W/C
--- NOTE | 2023-08-28 11:07 | NUR ---
PT BACK FROM MRI RETURNS TO SITTING IN THE RECLINER. FRESH H20 TO CHAIRSIDE
--- NOTE | 2023-08-28 11:10 | NUR ---
PATIENT ON PHONE, WILL REATTEMPT ASSESSMENT.
[2023-08-28 13:14] VITALS: BP 114/75
--- NOTE | 2023-08-28 14:16 | NUR ---
VISITED DURING SPIRITUAL CARE ROUNDS. PT EXPRESSED SADNESS, WORRY ABOUT . I LISTENED EMPATHETICALLY, RELAYED INFORMATION FROM CARE TEAM, PROVIDED REASSURANCE, EXPLORED HOPE. PT EXPRESSED GRATITUDE. I PROVIDED PRAYER.
[2023-08-28 14:22] LABS: TOPIRAMATE <1.5 ug/mL (5.0-20.0)
[2023-08-28 14:27] VITALS: BP 114/75
--- NOTE | 2023-08-28 14:46 | NUR ---
PT REMAINS UP IN THE CHAIR DR WOO IN TO SEE HIM. MRI RESULTS DISCUSSED AND PLAN GOING FORWARD. ALL QUESTIONS ANSWERED.
--- NOTE | 2023-08-28 16:01 | NUR ---
PT AMBULATES AN ENTIRE LAP IN THE AC SBA WITH FWW. RETURNS TO SITTING IN CHAIR WAITING FOR DC
--- NOTE | 2023-08-28 17:40 | NUR ---
PT UP IN THE CHAIR COMPLETES EVENING MEAL STATES HE IS ANXIOUS FOR DC.
--- NOTE | 2023-08-28 22:44 | EKG ---
[facility] [address] [facility] [place] [address] Signed Sinus rhythm with 1st degree AV block Septal infarct (cited on or before 23-OCT-2020) Abnormal ECG When compared with ECG of 24-AUG-2023 13:06, No significant change was found Confirmed by Kristen Woo MD () on 08/28/2023 10:44:08 PM Electronically Signed By: KRISTEN WOO MD 08/28/23 2244 PATIENT NAME: MIRA KIM Electrocardiogram DATE OF : 46 PHYSICIAN: KRISTEN WOO MD REPORT #: [id number] REPORT IS CONFIDENTIAL AND NOT TO BE RELEASED WITHOUT AUTHORIZATION
== END 2023-08-28 18:55 | disposition home health service (06) | DRG 64 ==
LOC: ED 11:29 → MS 11:30
PROVIDERS: Emergency Medicine; ADMIT Family Medicine; ATTEND Family Medicine
DX: I63.9 Cerebral infarction, unspecified (principal); I62.00 Nontraumatic subdural hemorrhage, unspecified; R53.1 Weakness; R73.9 Hyperglycemia, unspecified; G40.909 Epilepsy, unspecified, not intractable, without status epilepticus; I10 Essential (primary) hypertension; I44.0 Atrioventricular block, first degree; R47.9 Unspecified speech disturbances; R29.700 NIHSS score 0; Z72.0 Tobacco use
CPT/HCPCS: 36415; 70450; 70496; 70498; 70553; 71045; 80053; 80061; 80156; 80201; 81001; 83036; 83735; 84100; 84484; 85025; 93005; 93010; 97163; A9270-GY; A9579; G0378; Q9967

== ENCOUNTER 2023-09-17 12:45 | Emergency (ER) | payer OTHER, MEDICARE ==
[~2023-09-17 12:45] MED LIST changes: +FISH OIL 1,0001 EACH PO; +SENNA-PLUS TAB1 EACH PO; +TEGRETOL200 MG PO; +VITAMIN D325 MCG PO
--- OUTSIDE RECORDS SUMMARY | 2023-09-17 12:49 | XMS ---
PreManage Notification: MIRA KIM Security Urgent Care Nurse Practitioner Events No recent Security Events currently on file CRITERIA MET - [facility] - 2 Visits in 30 Days CARE PROVIDERS SHIRLEY WOOD Internal Medicine Current PHONE: Unknown Ml has no Care Guidelines for this patient. E.DCrys VISIT COUNT (12 MO.) 6 [facility] TOTAL 6 NOTE: Visits indicate total known visits. ED/UCC VISIT TRACKING (12 MO.) 09/17/2023 12:46 [facility] TYPE: Emergency COMPLAINT: - SOB, CHEST PAIN, CONFUSION 09/03/2023 14:30 [facility] TYPE: Emergency COMPLAINT: - SEIZURE DIAGNOSES: - Epilepsy, unspecified, not intractable, without status epilepticus - Essential (primary) hypertension - Other half-way (current) drug therapy - Other malaise - Other symptoms and signs involving emotional state - Personal history of nicotine dependence - Personal history of transient ischemic attack (TIA), and cerebral infarction without residual deficits 08/26/2023 11:29 [facility] TYPE: Emergency COMPLAINT: - STROKE SYMPTOMS 08/24/2023 12:28 [facility] TYPE: Emergency COMPLAINT: - SEIZURE DIAGNOSES: - Epilepsy, unspecified, not intractable, without status epilepticus - Essential (primary) hypertension - Other buttermaker (current) drug therapy - Personal history of nicotine dependence - Weakness 07/20/2023 12:08 [facility] TYPE: Emergency COMPLAINT: - FEET SWOLLEN DIAGNOSES: - Epilepsy, unspecified, not intractable, without status epilepticus - Essential (primary) hypertension - Localized edema - Other half-way (current) drug therapy - Personal history of nicotine dependence - Venous insufficiency (chronic) (peripheral) 10/02/2022 12:07 [facility] TYPE: Emergency COMPLAINT: - MEDICATION REQUEST DIAGNOSES: - Encounter for issue of repeat prescription - Essential (primary) hypertension - Other buttermaker (current) drug therapy - Personal history of nicotine dependence INPATIENT VISIT TRACKING (12 MO.) 08/27/2023 17:[address] [facility] TYPE: Medical Surgical COMPLAINT: - WEAKNESS, POSSIBLE TIA DIAGNOSES: - Atrioventricular block, first degree - Atrioventricular block, first degree - Cerebral infarction, unspecified - Cerebral infarction, unspecified - Epilepsy, unspecified, not intractable, without status epilepticus - Epilepsy, unspecified, not intractable, without status epilepticus - Essential (primary) hypertension - Essential (primary) hypertension - Hyperglycemia, unspecified - Hyperglycemia, unspecified - NIHSS score 0 - NIHSS score 0 - Nontraumatic subdural hemorrhage, unspecified - Nontraumatic subdural hemorrhage, unspecified - Tobacco use - Tobacco use - Unspecified speech disturbances - Unspecified speech disturbances - Weakness 06/07/2023 05:37 [facility] TYPE: Neuro Surgery DIAGNOSES: 78316. Localization-related (focal) (partial) idiopathic epilepsy and epileptic syndromes with seizures of localized onset, intractable, without status epilepticus 99998. Localization-related (focal) (partial) symptomatic epilepsy and epileptic syndromes with complex partial seizures, intractable, without status epilepticus 25764. Localization-related (focal) (partial) symptomatic epilepsy and epileptic syndromes with complex partial seizures, intractable, without status epilepticus [email or web address]
[2023-09-17 13:20] LABS: EOSINOPHILS 2.7 % (0-6); HEMATOCRIT 37.2 % (35.0-50.0); HEMOGLOBIN 12.6 g/dL (12.0-18.0); MCHC 33.9 g/dl (30-36); MCV 94.5 fl (81-99); MONOCYTES 11.6 % (0-12); NEUTROPHILS 58.7 % (39-80); PLATELET COUNT 277 K/uL (140-440); RBC 3.93 M/ul (4.3-5.7); RDW 13.9 (10.5-15.0)
[2023-09-17 13:38] LABS: ALBUMIN 3.1 g/dL (3.4-5.0); ALBUMIN/GLOBULIN RATIO 0.89 (1.1-2.4); ANION GAP 10.9 (7-21); BILIRUBIN, TOTAL 0.3 ng/dL (0.2-1.0); BUN/CREATININE RATIO 17.2 (6.0-28.6); CALCIUM 8.4 mg/dL (8.5-10.1); CREATININE, SERUM 0.93 mg/dL (0.70-1.30); POTASSIUM 3.9 mmol/L (3.5-5.1); PROTEIN, TOTAL 6.6 g/dL (6.4-8.2)
[2023-09-17 13:48] LABS: BILIRUBIN, URINE NEGATIVE (negative); BLOOD/HGB, URINE NEGATIVE (Negative); KETONE, URINE NEGATIVE (Negative); LEUK ESTERASE, URINE NEGATIVE (negative); NITRITE, URINE NEGATIVE (negative)
[2023-09-17 14:59] VITALS: BP 155/86
== END 2023-09-17 15:00 | disposition home or self-care (01) ==
LOC: ED 12:45
PROVIDERS: Emergency Medicine
DX: G40.909 Epilepsy, unspecified, not intractable, without status epilepticus (principal); I10 Essential (primary) hypertension; Z87.891 Personal history of nicotine dependence; Z79.899 Other long term (current) drug therapy
CPT/HCPCS: 36415; 70450; 80053; 81003; 84484; 85025; 99284-25

== ENCOUNTER 2023-11-01 16:41 | Emergency (ER) | payer OTHER, MEDICARE ==
[~2023-11-01] VITALS: Ht 193 cm; Wt 81.8 kg
--- OUTSIDE RECORDS SUMMARY | 2023-11-01 16:42 | XMS ---
PreManage Notification: MIRA KIM Security Vocational Training Instructor Events No recent Security Events currently on file CRITERIA MET - 6 ED Visits in 6 Months - PDMP CARE PROVIDERS SHIRLEY WOOD Internal Medicine Current PHONE: Unknown Ml has no Care Guidelines for this patient. E.D. VISIT COUNT (12 MO.) [facility] Desirea Rae (Shiva Shannon) TOTAL 7 NOTE: Visits indicate total known visits. ED/UCC VISIT TRACKING (12 MO.) 11/01/2023 16:41 [facility] [place] TYPE: Emergency COMPLAINT: - HEADACHE 09/29/2023 11:05 [facility] (Shiva Shannon[facility] TYPE: Emergency DIAGNOSES: - Dysarthria and anarthria - Other specified disorders of muscle - Other speech disturbances - Locked Jaw /Dizzy - Spasms 09/17/2023 12:46 [facility] [place] TYPE: Emergency COMPLAINT: - SOB, CHEST PAIN, CONFUSION DIAGNOSES: - Dizziness and giddiness - Epilepsy, unspecified, not intractable, without status epilepticus - Essential (primary) hypertension - Other ferry terminal agent (current) drug therapy - Personal history of nicotine dependence 09/03/2023 14:30 [facility] [place] [facility] [place] TYPE: Emergency COMPLAINT: - SEIZURE DIAGNOSES: - Epilepsy, unspecified, not intractable, without status epilepticus - Essential (primary) hypertension - Other retirement (current) drug therapy - Other malaise - Other symptoms and signs involving emotional state - Personal history of nicotine dependence - Personal history of transient ischemic attack (TIA), and cerebral infarction without residual deficits 08/26/2023 11:29 [facility] [place] TYPE: Emergency COMPLAINT: - STROKE SYMPTOMS 08/24/2023 12:[address] [facility] [place] [facility] [place] TYPE: Emergency COMPLAINT: - SEIZURE DIAGNOSES: - Epilepsy, unspecified, not intractable, without status epilepticus - Essential (primary) hypertension - Other ferry terminal agent (current) drug therapy - Personal history of nicotine dependence - Weakness 07/20/2023 12:08 [facility] [place] TYPE: Emergency COMPLAINT: - FEET SWOLLEN DIAGNOSES: - Epilepsy, unspecified, not intractable, without status epilepticus - Essential (primary) hypertension - Localized edema - Other retirement (current) drug therapy - Personal history of nicotine dependence - Venous insufficiency (chronic) (peripheral) INPATIENT VISIT TRACKING (12 MO.) 08/27/2023 17:25 [facility] [place] TYPE: Medical Surgical COMPLAINT: - WEAKNESS, [...] Unspecified speech disturbances - Weakness 06/07/2023 05:37 [facility] TYPE: Neuro Surgery DIAGNOSES: 88104. Localization-related (focal) (partial) idiopathic epilepsy and epileptic syndromes with seizures of localized onset, intractable, without status epilepticus 80295. 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
[2023-11-01] MEDS ORDERED: JARDIANCE10 MG PO (17:06)
[2023-11-01] MEDS ORDERED: LORazepam 1 MG TAB PO ONE (17:15)
[2023-11-01 17:39] LABS: BASOPHILS 0.6 % (0-2); EOSINOPHILS 0.7 % (0-6); HEMATOCRIT 40.3 % (35.0-50.0); HEMOGLOBIN 13.8 g/dL (12.0-18.0); LYMPHOCYTES 14.9 % (24-44); MCH 32.2 (27-36); MCHC 34.2 g/dl (30-36); MCV 94.1 fl (81-99); MONOCYTES 8.8 % (0-12); PLATELET COUNT 239 K/uL (140-440); RBC 4.29 M/ul (4.3-5.7); RDW 13.9 (10.5-15.0)
[2023-11-01 17:54] LABS: ALBUMIN 3.6 g/dL (3.4-5.0); ALBUMIN/GLOBULIN RATIO 0.97 (1.1-2.4); ANION GAP 12.7 (7-21); BILIRUBIN, TOTAL 0.4 ng/dL (0.2-1.0); BUN/CREATININE RATIO 12.37 (6.0-28.6); CALCIUM 8.8 mg/dL (8.5-10.1); CREATININE, SERUM 0.97 mg/dL (0.70-1.30); POTASSIUM 3.7 mmol/L (3.5-5.1); PROTEIN, TOTAL 7.3 g/dL (6.4-8.2)
[2023-11-01] MEDS ORDERED: ATIVAN1 MG PO (18:18)
[2023-11-01] MEDS ORDERED: LOSARTAN POTASSIUM 50 MG TAB PO ONE (18:45)
[2023-11-01 18:47] VITALS: BP 189/107
== END 2023-11-01 18:51 | disposition home or self-care (01) ==
LOC: ED 16:41
PROVIDERS: Emergency Medicine
DX: G40.909 Epilepsy, unspecified, not intractable, without status epilepticus (principal); I11.9 Hypertensive heart disease without heart failure; I50.9 Heart failure, unspecified; Z79.899 Other long term (current) drug therapy; Z88.5 Allergy status to narcotic agent; Z87.891 Personal history of nicotine dependence
CPT/HCPCS: 36415; 70450; 80053; 85025; 99284-25; A9270-GY

== ENCOUNTER 2023-11-17 13:22 | Emergency (ER) | payer OTHER, MEDICARE ==
[~2023-11-17] VITALS: Ht 195.6 cm; Wt 79.4 kg
[~2023-11-17 13:22] MED LIST changes: +JARDIANCE10 MG PO
--- OUTSIDE RECORDS SUMMARY | 2023-11-17 13:23 | XMS ---
PreManage Notification: MIRA KIM Security Critical Care Clinical Nurse Specialist Events No recent Security Events currently on file CRITERIA MET - 6 ED Visits in 6 Months - [facility] - 2 Visits in 30 Days CARE PROVIDERS SHIRLEY WOOD Internal Medicine Current PHONE: Unknown Ml has no Care Guidelines for this patient. E.D. VISIT COUNT (12 MO.) [address] [place], [place] [address]Nahomy (Shiva Shannon) TOTAL 8 NOTE: Visits indicate total known visits. ED/UCC VISIT TRACKING (12 MO.) 11/17/2023 13:22 [facility] [place] TYPE: Emergency COMPLAINT: - CONFUSION 11/01/2023 16:41 [facility] [place] TYPE: Emergency COMPLAINT: - HEADACHE DIAGNOSES: - Allergy status to narcotic agent - Epilepsy, unspecified, not intractable, without status epilepticus - Heart failure, unspecified - Hypertensive heart disease without heart failure - Other penitentiary (current) drug therapy - Personal history of nicotine dependence 09/29/2023 11:05 [facility] Desirae JAMES (Shiva Shannon) TYPE: Emergency DIAGNOSES: - Dysarthria and anarthria - Other specified disorders of muscle - Other speech disturbances - Locked Jaw /Dizzy - Spasms 09/17/2023 12:46 [facility] [place] [facility] [place] TYPE: Emergency COMPLAINT: - SOB, CHEST PAIN, CONFUSION DIAGNOSES: - Dizziness and giddiness - Epilepsy, unspecified, not intractable, without status epilepticus - Essential (primary) hypertension - Other implementation manager (current) drug therapy - Personal history of nicotine dependence 09/03/2023 14:30 [facility] [place] [facility] [place] TYPE: Emergency COMPLAINT: - SEIZURE DIAGNOSES: - Epilepsy, unspecified, not intractable, without status epilepticus - Essential (primary) hypertension - Other penitentiary (current) drug therapy - Other malaise - Other symptoms and signs involving emotional state - Personal history of nicotine dependence - Personal history of transient ischemic attack (TIA), and cerebral infarction without residual deficits 08/26/2023 11:29 [facility] [place] [facility] [place] TYPE: Emergency COMPLAINT: - STROKE SYMPTOMS 08/24/2023 12:28 [facility] [place] TYPE: Emergency COMPLAINT: - SEIZURE DIAGNOSES: - Epilepsy, unspecified, not intractable, without status epilepticus - Essential (primary) hypertension - Other penitentiary (current) drug therapy - Personal history of nicotine dependence - Weakness 07/20/2023 12:08 [facility] [place] TYPE: Emergency COMPLAINT: - FEET SWOLLEN DIAGNOSES: - Epilepsy, unspecified, not intractable, without status epilepticus - Essential (primary) hypertension - Localized edema - Other implementation manager (current) drug therapy - Personal history of [...] Unspecified speech disturbances - Weakness 06/07/2023 05:37 [facility] TYPE: Neuro Surgery DIAGNOSES: 11696. Localization-related (focal) (partial) idiopathic epilepsy and epileptic syndromes with seizures of localized onset, intractable, without status epilepticus 15804. Localization-related (focal) (partial) symptomatic epilepsy and epileptic syndromes with complex partial seizures, intractable, without status epilepticus 08726. Localization-related (focal) (partial) symptomatic epilepsy and epileptic syndromes with complex partial seizures, intractable, without status epilepticus [email or web address]
[2023-11-17] MEDS ORDERED: JARDIANCE10 MG PO (14:04)
[2023-11-17] MEDS ORDERED: SODIUM CHLORIDE 0.9% 1,000 ML IV ONE (15:15)
[2023-11-17 15:27] LABS: BILIRUBIN, URINE NEGATIVE (negative); BLOOD/HGB, URINE NEGATIVE (Negative); KETONE, URINE NEGATIVE (Negative); LEUK ESTERASE, URINE NEGATIVE (negative); NITRITE, URINE NEGATIVE (negative); PH, URINE 6.5 (5-7)
[2023-11-17 15:40] LABS: BASOPHILS 0.6 % (0-2); EOSINOPHILS 2.1 % (0-6); HEMATOCRIT 40.3 % (35.0-50.0); HEMOGLOBIN 13.5 g/dL (12.0-18.0); LYMPHOCYTES 31.5 % (24-44); MCH 31.8 (27-36); MCHC 33.6 g/dl (30-36); MCV 94.7 fl (81-99); MONOCYTES 10.7 % (0-12); NEUTROPHILS 55.1 % (39-80); PLATELET COUNT 269 K/uL (140-440); RBC 4.25 M/ul (4.3-5.7); RDW 14.3 (10.5-15.0)
[2023-11-17 15:51] LABS: ALBUMIN 3.5 g/dL (3.4-5.0); ANION GAP 11.8 (7-21); BILIRUBIN, TOTAL 0.3 ng/dL (0.2-1.0); BUN/CREATININE RATIO 12.08 (6.0-28.6); CALCIUM 8.7 mg/dL (8.5-10.1); CREATININE, SERUM 0.91 mg/dL (0.70-1.30); POTASSIUM 3.8 mmol/L (3.5-5.1)
[2023-11-17] MEDS ORDERED: NORVASC5 MG PO (17:42)
[2023-11-17] MEDS ORDERED: AMLODIPINE BESYLATE 5 MG TAB PO ONE (17:45)
[2023-11-17 18:01] VITALS: BP 178/121
== END 2023-11-17 18:04 | disposition home or self-care (01) ==
LOC: ED 13:22
PROVIDERS: Emergency Medicine
DX: R41.0 Disorientation, unspecified (principal); I11.0 Hypertensive heart disease with heart failure; I50.9 Heart failure, unspecified; Z87.891 Personal history of nicotine dependence; Z88.5 Allergy status to narcotic agent; Z79.899 Other long term (current) drug therapy
CPT/HCPCS: 36415; 80053; 81003; 85025; 96360; 96361; 99284-25; J7030